=== PATIENT | female | born 1980 | race Asian ===

== ENCOUNTER 2017-06-04 18:00 | Inpatient (IN) | payer SELFPAY ==
[~2017-06-04] VITALS: Ht 167 cm; Wt 65.8 kg
[2017-06-04] MEDS ORDERED: LACTATED RINGERS 1,000 ML IV SCH (18:24)
[2017-06-04] MEDS ORDERED: CITRIC ACID/SODIUM CITRATE 30 ML UDC PO SCH (18:28)
[2017-06-04] MEDS ORDERED: PREN-380 PO (18:29)
[2017-06-04] MEDS ORDERED: FERR325E14 PO (18:29)
[2017-06-04 18:55] VITALS: BP 117/77
[2017-06-04 19:13] LABS: BASOPHILS # (AUTO) 0.2 K/uL (0.00-0.22); BASOPHILS % (AUTO) 2.1 % (0.0-2.0); EOSINOPHILS % (AUTO) 0.4 % (0.0-4.0); HEMATOCRIT 38.8 % (36-48); HEMOGLOBIN 12.9 g/dL (12.0-16.0); LYMPHOCYTES # (AUTO) 1.9 K/uL (2.5-16.5); LYMPHOCYTES % (AUTO) 25.4 % (20.5-51.1); MEAN CORPUSCULAR HEMOGLOBIN 29 pg (27-31); MEAN CORPUSCULAR HGB CONC 33 g/dL (33-37); MEAN CORPUSCULAR VOLUME 87 fL (80-94); MONOCYTES # (AUTO) 0.3 K/uL (0.8-1.0); MONOCYTES % (AUTO) 4.5 % (1.7-9.3); NEUTROPHILS % (AUTO) 67.6 % (42.2-75.2); PLATELET COUNT (AUTO) 199 K/uL (140-450); RED BLOOD CELL COUNT(AUTO) 4.46 MIL/uL (4.20-5.40); RED CELL DISTRIBUTION WIDTH 13.9 % (11.6-13.7); WHITE BLOOD COUNT (AUTO) 7.4 K/uL (4.8-10.8)
[2017-06-04 19:28] LABS: ANION GAP 17.8 (8-16); CREATININE 0.7 mg/dL (0.6-1.3); POTASSIUM 3.8 mmol/L (3.5-5.1); TOTAL BILIRUBIN 1.1 mg/dL (0.0-1.0)
[2017-06-04 19:44] LABS: APPEARANCE,URINE CLEAR (CLEAR); BILIRUBIN,URINE NEGATIVE (NEGATIVE); BLOOD, URINE NEGATIVE (NEGATIVE); COLOR,URINE YELLOW (YELLOW); LEUKOCYTE ESTERASE ,URINE NEGATIVE (NEGATIVE); NITRITE, URINE NEGATIVE (NEGATIVE); UGLUCOSE NEGATIVE (NEGATIVE)
[2017-06-04 19:49] LABS: RBC,URINE 0-5 (RARE) /HPF (0-5); WBC,URINE 0-5 (RARE) /HPF (0-5)
[2017-06-04] MEDS ORDERED: BUPIVACAINE-MPF 0.75% 10 ML VIAL INJ ONE (20:05)
[2017-06-04] MEDS ORDERED: METOCLOPRAMIDE 10 MG/2 ML INJ VIAL IVP ONE (20:05)
[2017-06-04] MEDS ORDERED: ONDANSETRON 4 MG/2 ML VIAL IVP ONE (20:05)
[2017-06-04] MEDS ORDERED: TRIAMCINOLONE 40 MG/ML 5ML VIAL ONE (20:11)
[2017-06-04] MEDS ORDERED: OXYTOCIN 10 UNITS/ML VIAL ONE (20:11)
[2017-06-04] MEDS ORDERED: METHYLERGONOVINE 0.2 MG/ML AMP ONE (20:11)
[2017-06-04] MEDS ORDERED: MORPHINE PRES FREE 10 MG/10 ML AMP IV ONE (20:14)
[2017-06-04] MEDS ORDERED: OXYTOCIN 20 UNITS in LACTATED RINGERS 1,000 ML IV SCH ×2 (20:31→20:37)
[2017-06-04] MEDS ORDERED: NALOXONE 0.4 MG/ML VIAL IVP PRN ×2 (20:35)
[2017-06-04] MEDS ORDERED: diphenhydrAMINE 50 MG/ML VIAL IVP PRN (20:35)
[2017-06-04] MEDS ORDERED: ONDANSETRON 4 MG/2 ML VIAL IVP PRN (20:35)
[2017-06-04] MEDS ORDERED: KETOROLAC 30 MG/ML VIAL IVP PRN (20:35)
[2017-06-04] MEDS ORDERED: diphenhydrAMINE 50 MG/ML VIAL ONE (20:36)
[2017-06-04] MEDS ORDERED: OXYTOCIN 20 UNITS/LR PREMIX 1,000 ML IV ONE ×2 (20:36→21:23)
[2017-06-04] MEDS ORDERED: METHYLERGONOVINE 0.2 MG/ML AMP IM PRN (20:40)
[2017-06-04] MEDS ORDERED: SIMETHICONE 80 MG TAB.CHEW PO PRN (20:40)
[2017-06-04] MEDS ORDERED: TRIMETHOBENZAMIDE 200 MG/2 ML SYR IM PRN (20:40)
[2017-06-04] MEDS ORDERED: TEMAZEPAM 15 MG CAP PO PRN (20:40)
[2017-06-04] MEDS ORDERED: oxyCODONE/APAP 5/325 MG 1 TAB TAB PO PRN (20:40)
[2017-06-04] MEDS ORDERED: MEASLES, MUMPS, AND RUBELLA 1 VIAL SQVAC PRN (20:40)
[2017-06-04] MEDS ORDERED: IBUPROFEN 800 MG TAB PO PRN (20:40)
[2017-06-04] MEDS ORDERED: HYDROcodone/APAP 5/325 MG 1 TAB TAB PO PRN (20:40)
[2017-06-04] MEDS ORDERED: DOCUSATE SOD/SENNA 50/8.6 MG 1 TAB PO SCH (21:00)
[2017-06-04] MEDS ORDERED: INFLUENZA VIRUS VACCINE QUAD 0.5 ML SYR IMVAC SCH (22:00)
[2017-06-05 06:45] LABS: BASOPHILS # (AUTO) 0.1 K/uL (0.00-0.22); BASOPHILS % (AUTO) 0.6 % (0.0-2.0); EOSINOPHILS # (AUTO) 0.1 K/uL (0-0.4); EOSINOPHILS % (AUTO) 0.6 % (0.0-4.0); HEMATOCRIT 34.5 % (36-48); HEMOGLOBIN 11.4 g/dL (12.0-16.0); LYMPHOCYTES # (AUTO) 1.2 K/uL (2.5-16.5); LYMPHOCYTES % (AUTO) 10.7 % (20.5-51.1); MEAN CORPUSCULAR HEMOGLOBIN 29 pg (27-31); MEAN CORPUSCULAR HGB CONC 33 g/dL (33-37); MEAN CORPUSCULAR VOLUME 88 fL (80-94); MONOCYTES # (AUTO) 0.3 K/uL (0.8-1.0); MONOCYTES % (AUTO) 3.2 % (1.7-9.3); NEUTROPHILS # (AUTO) 9.1 K/uL (1.8-7.7); NEUTROPHILS % (AUTO) 84.9 % (42.2-75.2); PLATELET COUNT (AUTO) 171 K/uL (140-450); RED BLOOD CELL COUNT(AUTO) 3.93 MIL/uL (4.20-5.40); RED CELL DISTRIBUTION WIDTH 14.3 % (11.6-13.7); WHITE BLOOD COUNT (AUTO) 10.8 K/uL (4.8-10.8)
--- NOTE | 2017-06-05 09:35 | NUR ---
PATIENT HAS BEEN SCREENED AND CATEGORIZED LOW RISK. PATIENT WILL BE SEEN WITHIN 7 DAYS OF ADMISSION. 06/11/[address]
[2017-06-07 12:03] LABS: RAPID PLASMA REAGIN NON-REACTIVE (Non Reactiv)
== END 2017-06-07 12:55 | disposition home or self-care (01) | DRG 766 ==
LOC: MLD 18:00 → MFCC 21:40
PROVIDERS: ADMIT Obstetrics & Gynecology; ATTEND Obstetrics & Gynecology
PROC: 10D00Z1 Extraction of Products of Conception, Low, Open Approach (ICD-10-PCS; principal; 2017-06-04 20:30)
DX: O32.1XX0 Maternal care for breech presentation, not applicable or unspecified (principal); Z28.21 Immunization not carried out because of patient refusal; Z37.0 Single live birth; Z3A.39 39 weeks gestation of pregnancy
CPT/HCPCS: 36415; 80053; 81001; 85025; 86592; 86886; 86900; 86901; J0690; J1200; J1885; J2210; J2270; J2405; J2590; J2765; J3301; J3490; J7060; J7120